=== PATIENT | male | born 1995 | race American Indian/Alaskan Native ===

== ENCOUNTER 2017-04-26 23:28 | Emergency (ER) | payer BC ==
--- NOTE | 2017-04-27 01:06 | CT ---
EXAM: CT Head Without Intravenous Contrast CLINICAL HISTORY: 21 years old, male; Signs and symptoms; Weakness, extremity; Bilateral; Additional info: Pain TECHNIQUE: Axial computed tomography images of the head/brain without intravenous contrast. All CT scans at this facility use one or more dose reduction techniques, viz.: automated exposure control; ma/kV adjustment per patient size (including targeted exams where dose is matched to indication; i.e. head); or iterative reconstruction technique. Coronal and sagittal reformatted images were created and reviewed. COMPARISON: No relevant prior studies available. FINDINGS: Brain: Evidence of white matter hypoattenuation in the frontoparietal lobe near the vertex, nonspecific. No hemorrhage. No edema. Ventricles: No hydrocephalus. Bones: Skull is intact. Sinuses: No acute sinusitis. Mastoid air cells: No mastoid effusion. IMPRESSION: Evidence of white matter hypoattenuation in the frontoparietal lobe near the vertex, nonspecific. Correlate with history. Further evaluation can be performed with MRI.
--- NOTE | 2017-04-27 01:11 | CT ---
EXAM: CT Cervical Spine Without Intravenous Contrast CLINICAL HISTORY: 21 years old, male; Signs and symptoms; Numbness and other: Pain and numbness in upper extremities TECHNIQUE: Axial computed tomography images of the cervical spine without intravenous contrast. All CT scans at this facility use one or more dose reduction techniques, viz.: automated exposure control; ma/kV adjustment per patient size (including targeted exams where dose is matched to indication; i.e. head); or iterative reconstruction technique. Coronal and sagittal reformatted images were created and reviewed. COMPARISON: No relevant prior studies available. FINDINGS: Vertebrae/discs: No acute fracture. No acute subluxation. Reversal of cervical lordosis. Soft tissues: No acute findings. IMPRESSION: Reversal of cervical lordosis. Technically limited study.
--- NOTE | 2017-04-27 01:17 | C.PDOC ---
History Of Present Illness 21 year old male presents to the ER with a complaint of intermittent left hand numbness that he describes as a pins and needles sensation for the past few days. Denies specific movements that trigger it. Notes that does not allow him to sleep well; thought it was from sleeping on his hands at night. Gets it throughout the day, yesterday while he was playing [employer]. 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 Right hand dominant. Denies headache, neck pain, shoulder pain, leg swelling, SOB, trauma, visual changes, or chest pain. PT notes he currently doesnt have the symptoms. Time Seen by Provider: 04/26/17 23:40 Chief Complaint (Nursing): Finger,Hand,&Wrist History Per: Patient History/Exam Limitations: no limitations Onset/Duration Of Symptoms: Days, Intermittent Episodes Current Symptoms Are (Timing): Still Present Recent travel outside of the [place]: No Past Medical History Reviewed: Historical Data, Nursing Documentation, Vital Signs Vital Signs: Last Vital Signs Temp 99.7 F H 04/27/17 04:56 Pulse 103 H 04/27/17 04:56 Resp 18 04/27/17 04:56 BP 137/79 04/27/17 04:56 Pulse Ox 97 04/27/17 04:56 - Medical History PMH: No Chronic Diseases Family History: States: Unknown Family Hx - Social History Hx Alcohol Use: No Hx Substance Use: No Review Of Systems Except As Marked, All Systems Reviewed And Found Negative. Musculoskeletal: Negative for: Neck Pain, Shoulder Pain, Other (Leg swelling) Neurological: Positive for: Numbness (Left hand). Negative for: Headache Physical Exam - Physical Exam Appears: Non-toxic, No Acute Distress, Other (obese) Skin: Normal Color, Warm, Dry Head: Atraumatic, Normacephalic Eye(s): bilateral: Normal Inspection, EOMI Nose: Normal Oral Mucosa: Moist Neck: Normal ROM, Supple Chest: Symmetrical, No Tenderness Cardiovascular: Rhythm Regular Respiratory: Normal Breath Sounds, No Rales, No Rhonchi, No Wheezing Extremity: Normal ROM (x4), Capillary Refill (<2 seconds), No Deformity, No Swelling Extremity: Bilateral: Normal Color And Temperature, Normal ROM Pulses: Left Radial: Normal, Right Radial: Normal Neurological/Psych: Oriented x3, Normal Speech, Normal Cognition, Normal Motor, Normal Sensation, Other (No focal deficits) ED Course And Treatment - Laboratory Results Result Diagrams: 04/27/17 02:01 04/27/17 02:01 O2 Sat by Pulse Oximetry: 98 (Room air) Pulse Ox Interpretation: Normal - CT Scan/US CT Head Other Rad Studies (CT/US): Read By Radiologist, Radiology Report Reviewed CT/US Interpretation: EXAM: CT Head Without Intravenous Contrast. CLINICAL HISTORY: 21 years old, male; Signs and symptoms; Weakness, extremity; Bilateral ; Additional info: Pain. TECHNIQUE: Axial computed tomography images of the head/brain without intravenous contrast. All CT scans at. this facility use one or more dose reduction techniques, viz.: automated exposure control; ma/kV. adjustment per patient size (including targeted exams where dose is matched to indication; i.e. head);. or iterative reconstruction technique. Coronal and sagittal reformatted images were created and reviewed. COMPARISON: No relevant prior studies available. FINDINGS: Brain: Evidence of white matter hypoattenuation in the frontoparietal lobe near the vertex,. nonspecific. No hemorrhage. No edema. Ventricles: No hydrocephalus. Bones: Skull is intact. Sinuses: No acute sinusitis. Mastoid air cells: No mastoid effusion. IMPRESSION: Evidence of white matter hypoattenuation in the frontoparietal lobe near the vertex, nonspecific. Correlate with history. Further evaluation can be performed with MRI. CT Cervical Spine Other Rad Studies (CT/US): Read By Radiologist, Radiology Report Reviewed CT/US Interpretation: EXAM: CT Cervical Spine Without Intravenous Contrast. CLINICAL HISTORY: 21 years old, male; Signs and symptoms; Numbness and other: Pain and numbness in upper. extremities. TECHNIQUE: Axial computed tomography images of the cervical spine without intravenous contrast. All CT scans. at this facility use one or more dose reduction techniques, viz.: automated exposure control; ma/kV. adjustment per patient size (including targeted exams where dose is matched to indication; i.e. head);. or iterative reconstruction technique. Coronal and sagittal reformatted images were created and reviewed. COMPARISON: No relevant prior studies available. FINDINGS: Vertebrae/discs: No acute fracture. No acute subluxation. Reversal of cervical lordosis. Soft tissues: No acute findings. IMPRESSION: Reversal of cervical lordosis. Technically limited study. Progress Note: CT head and CT cervical spine ordered, results discussed with Dr. Anderson who recommends to admit patient for inpatient MRI and further evaluation. Case discussed with neuro oncall, Dr. Rodríguez, who agrees patient should be admitted for MRI. Case discussed with Dr. Gallito Fry, medicine steel division supervisor, who will accept patient for admission. Disposition - Disposition Disposition: HOME/ ROUTINE Disposition Time: 01:16 Condition: STABLE - Clinical Impression Clinical Impression: Paresthesia - PA / MANAGER ADMINISTRATION / Resident Statement MD/DO has reviewed & agrees with the documentation as recorded. - Scribe Statement The provider has reviewed the documentation as recorded by the Scribmando Davis All medical record entries made by the Gissel were at my direction and personally dictated by me. I have reviewed the chart and agree that the record accurately reflects my personal performance of the history, physical exam, medical decision making, and the department course for this patient. I have also personally directed, reviewed, and agree with the discharge instructions and disposition.
[2017-04-27 02:08] LABS: BASO # 0.1 K/uL (0.0-0.2); BASO % 0.9 % (0.0-2.0); EOS # 0.1 K/uL (0.0-0.7); EOS % 0.7 % (0.0-4.0); LYMPH # 2.7 K/uL (1.0-4.3); LYMPH % 21.6 % (20.0-40.0); MEAN CELL VOLUME 85.3 fL (80.0-94.0); MEAN CORPUSCULAR HEMOGLOBIN 28.3 pg (27.0-31.0); MEAN CORPUSCULAR HGB CONC 33.1 g/dL (33.0-37.0); MEAN PLATELET VOLUME 8.3 fL (7.2-11.7); MONO # 0.9 K/uL (0.0-0.8); MONO % 6.9 % (0.0-10.0); NEUT # 8.7 K/uL (1.8-7.0); NEUT % 69.9 % (50.0-75.0); RBC 4.97 Mil/uL (4.40-5.90); WHITE BLOOD COUNT 12.5 K/uL (4.8-10.8)
[2017-04-27 02:13] LABS: INR 1.1; PROTHROMBIN TIME 11.8 SECONDS (9.7-12.2)
[2017-04-27 02:14] LABS: SQUAMOUS EPITHIAL < 1 /hpf (0-5); URINE BILIRUBIN NEGATIVE (NEGATIVE); URINE BLOOD NEGATIVE (NEGATIVE); URINE CLARITY Clear (Clear); URINE COLOR Yellow (YELLOW); URINE GLUCOSE (UA) NORMAL (Normal); URINE LEUKOCYTE ESTERASE NEG Leu/uL (Negative); URINE NITRATE NEGATIVE (NEGATIVE); URINE PROTEIN 1+ mg/dL (NEGATIVE)
[2017-04-27 02:17] LABS: CALCIUM 8.7 mg/dl (8.6-10.4); GFR AFRICAN-AMERICAN > 60; GFR NON-AFRICAN AMERICAN > 60
[2017-04-27 02:18] LABS: ALBUMIN 4.5 g/dL (3.5-5.0); ALT/SGPT 49 U/L (21-72); AST/SGOT 45 U/L (17-59); BLOOD UREA NITROGEN 14 mg/dL (9-20)
[2017-04-27 02:33] LABS: FREE T4 0.66 ng/dL (0.78-2.19)
[2017-04-27 03:06] LABS: BARBITURATES, UR NEGATIVE (NEGATIVE); BENZODIAZEPINES, UR NEGATIVE (NEGATIVE); PHENCYCLIDINE, UR NEGATIVE (NEGATIVE)
[2017-04-27 03:19] LABS: OPIATES, UR NEGATIVE (NEGATIVE)
[2017-04-27 08:53] VITALS: RESP 20; O2SAT 99
[2017-04-27] MEDS ORDERED: Enoxaparin 40 mg Syringe SC SCH (10:00)
--- NOTE | 2017-04-27 10:16 | CP.PCM.PN ---
Subjective - Date & Time of Evaluation Date of Evaluation: 04/27/17 Time of Evaluation: 08:00 - Subjective Subjective: Dr. Carvalho note: Patient is a 21 year old obese male with no significant history is here with complaints of numbness on the left hand that is around his 2nd and 3rd digit. He says this happens in the morning when he wakes up and can last for several minutes. He is not currently complaining of any numbness now either. Objective - Vital Signs/Intake and Output Vital Signs (last 24 hours): Temp Pulse Resp BP Pulse Ox 99.2 F 100 H 20 162/85 H 99 04/27/17 08:53 04/27/17 08:53 04/27/17 08:53 04/27/17 08:53 04/27/17 08:53 - Medications Medications: Current Medications Amlodipine Besylate (Norvasc) 5 mg PO DAILY CHELLY Aspirin (Aspirin) 325 mg PO DAILY CHELLY Rosuvastatin Calcium (Crestor) 10 mg PO HS CHELLY - Labs Labs: 04/27/17 02:01 04/27/17 02:01 PT 11.8 SECONDS (9.7-12.2) 04/27/17 02:01 INR 1.1 04/27/17 02:01 APTT 33 SECONDS (21-34) 04/27/17 02:01 - Constitutional Appears: Non-toxic, No Acute Distress - Eye Exam Eye Exam: Normal appearance, PERRL. absent: Nystagmus, Scleral icterus Pupil Exam: NORMAL ACCOMODATION, PERRL - ENT Exam ENT Exam: Normal Exam - Neck Exam Neck Exam: Normal Inspection - Respiratory Exam Respiratory Exam: Clear to Ausculation Bilateral. absent: Rales, Rhonchi, Wheezes - Cardiovascular Exam Cardiovascular Exam: REGULAR RHYTHM, RRR, +S1, +S2. absent: Gallop, Rubs - GI/Abdominal Exam GI & Abdominal Exam: Soft, Normal Bowel Sounds. absent: Distended, Guarding, Tenderness - Extremities Exam Extremities Exam: Normal Inspection. absent: Pedal Edema - Back Exam Back Exam: NORMAL INSPECTION. absent: CVA tenderness (L), CVA tenderness (R) - Neurological Exam Neurological Exam: Alert, CN II-XII Intact, Normal Gait, Oriented x3, Reflexes Normal Neuro motor strength exam: Left Upper Extremity: 5, Right Upper Extremity: 5, Left Lower Extremity: 5, Right Lower Extremity: 5 - Psychiatric Exam Psychiatric exam: Normal Affect, Normal Mood - Skin Skin Exam: Normal Color, Warm Assessment and Plan (1) Carpal tunnel syndrome of left wrist Assessment & Plan: Patient is discharged home, advised him to try a wrist splint while he sleeps. He will follow up with his PMD after discharge. Status: Acute
[2017-04-27 11:00] VITALS: BP 152/83; PULSE 105; TEMP 99
== END 2017-04-27 11:51 | disposition home or self-care (01) ==
LOC: C.ER 23:28 → C.9E 04-27 01:39 → UNDOADMOB 04-27 01:39 → INTOOBSV 04-27 02:18 → OBSVTOIN 04-27 02:18 → C.9E 04-27 10:33 → C.ER 04-27 11:51 → UNDODISIN 04-27 11:51
DX: G56.02 Carpal tunnel syndrome, left upper limb (principal); R20.2 Paresthesia of skin
CPT/HCPCS: 70450; 72125; 80053; 81001; 84439; 84443; 85025; 85610; 85730; 99285; G0480